=== PATIENT | male | born 1990 | race Caucasian/White ===

== ENCOUNTER 2016-08-07 17:59 | Emergency (ER) | payer SELFPAY ==
[~2016-08-07] VITALS: Ht 172.7 cm; Wt 96.0 kg
[~2016-08-07 17:59] MED LIST: CLEO300C2 PO; SULF-154 PO
[2016-08-07 18:06] VITALS: BP 150/105; TEMP 98.1; O2SAT 99
--- NOTE | 2016-08-07 18:22 | PD ---
HPI Chief Complaint: Anxiety Time Seen by Provider: 18:02 Travel History International Travel<30 days: No Contact w/Intl Traveler<30days: No Traveled to known affect area: No History of Present Illness HPI 26-year-old male complains of feeling shortness of breath and anxiety. Patient states that he lost his job recently. Patient states that he has been anxious and under a lot of stress recently. Patient denies any headache. Patient denies any visual change. Patient denies any chest pain. Patient denies abdominal pain. Patient denies any nausea vomiting diarrhea. Patient denies any history hypertension, diabetes, hyperlipidemia. Patient denies any substance abuse. Patient denies any suicidal ideation. PFSH Past Medical History Asthma: Yes (EXERCISE INDUCED ONLY) Anxiety: Yes Depression: Yes Diminished Hearing: No Immunizations Current: Yes Social History Alcohol Use: Yes (OCCAS. ) Tobacco Use: No (QUIT 1 YR AGO) Substance Use: No Allergies-Medications (Allergen,Severity, Reaction): Coded Allergies: No Known Allergies (Verified , 08/07/16) Reported Meds & Prescriptions Reported Meds & Active Scripts Active Ativan (Lorazepam) 0.5 Mg Tab 0.5 Mg PO Q8H PRN Review of Systems General / Constitutional: No: Fever Eyes: No: Visual changes HENT: No: Headaches Cardiovascular: No: Chest Pain or Discomfort Respiratory: Positive: Shortness of Breath Gastrointestinal: No: Abdominal Pain Genitourinary: No: Dysuria Musculoskeletal: No: Pain Skin: No Rash Neurologic: No: Weakness Psychiatric: Positive: Anxiety, No: Depression Endocrine: No: Polydipsia Hematologic/Lymphatic: No: Easy Bruising Physical Exam Narrative GENERAL: Well-nourished, well-developed patient. SKIN: Focused skin assessment warm/dry. HEAD: Normocephalic. EYES: No scleral icterus. No injection or drainage. NECK: Supple, trachea midline. No JVD or lymphadenopathy. CARDIOVASCULAR: Regular rate and rhythm without murmurs, gallops, or rubs. RESPIRATORY: Breath sounds equal bilaterally. No accessory muscle use. GASTROINTESTINAL: Abdomen soft, non-tender, nondistended. MUSCULOSKELETAL: No cyanosis, or edema. BACK: Nontender without obvious deformity. No CVA tenderness. Neurologic exam normal. Data Data Last Documented VS Vital Signs Date Time Temp Pulse Resp B/P Pulse Ox O2 Delivery O2 Flow Rate FiO2 08/07/16 18:27 96 08/07/16 18:06 98.1 101 16 150/105 Orders Complete Blood Count With Diff (08/07/16 18:19) Comprehensive Metabolic Panel (08/07/16 18:19) Chest, Single Ap (08/07/16 18:19) Iv Access Insert/Monitor (08/07/16 18:19) Ecg Monitoring (08/07/16 18:19) Oximetry (08/07/16 18:19) Potassium Chloride (Kcl) (08/07/16 19:00) Labs Laboratory Tests Test 08/07/16 18:25 White Blood Count 13.6 TH/MM3 Red Blood Count 5.14 MIL/MM3 Hemoglobin 16.2 GM/DL Hematocrit 47.5 % Mean Corpuscular Volume 92.5 FL Mean Corpuscular Hemoglobin 31.5 PG Mean Corpuscular Hemoglobin 34.0 % Concent Red Cell Distribution Width 12.2 % Platelet Count 253 TH/MM3 Mean Platelet Volume 8.0 FL Neutrophils (%) (Auto) 69.2 % Lymphocytes (%) (Auto) 21.0 % Monocytes (%) (Auto) 6.5 % Eosinophils (%) (Auto) 2.8 % Basophils (%) (Auto) 0.5 % Neutrophils # (Auto) 9.3 TH/MM3 Lymphocytes # (Auto) 2.9 TH/MM3 Monocytes # (Auto) 0.9 TH/MM3 Eosinophils # (Auto) 0.4 TH/MM3 Basophils # (Auto) 0.1 TH/MM3 CBC Comment DIFF FINAL Differential Comment Sodium Level 144 MEQ/L Potassium Level 3.2 MEQ/L Chloride Level 107 MEQ/L Carbon Dioxide Level 25.6 MEQ/L Anion Gap 11 MEQ/L Blood Urea Nitrogen 9 MG/DL Creatinine 0.97 MG/DL Estimat Glomerular Filtration 94 ML/MIN Rate Random Glucose 101 MG/DL Calcium Level 9.7 MG/DL Total Bilirubin 0.4 MG/DL Aspartate Amino Transf 100 U/L (AST/SGOT) Alanine Aminotransferase 139 U/L (ALT/SGPT) Alkaline Phosphatase 118 U/L Total Protein 7.8 GM/DL Albumin 3.8 GM/DL MDM Medical Decision Making Medical Screen Exam Complete: Yes Emergency Medical Condition: Yes Interpretation(s) 9 PM. Last Impressions Chest X-Ray 08/07/161818 Signed Impressions: Service Date/Time: July 18:21 - CONCLUSION: No acute cardiopulmonary disease. Miki Shaikh MD CBC with WBC 13.6. Normal differential. Potassium 3.2. AST 100. ALT 139. Alkaline phosphatase 118. Differential Diagnosis Differential diagnosis including anxiety, depression, adjustment disorder. Narrative Course 26-year-old male with mental stress, anxiety and shortness of breath. Patient' s blood pressure is better when he is calm. KCl 40 mEq by mouth given. Diagnosis Primary Impression: Acute anxiety Additional Impressions: Hypokalemia Transaminitis Patient Instructions: General Instructions Additional Instructions: Ativan as needed. Follow-up with local physician. Advised patient to avoid alcohol. Monitor blood pressure at home. Return if persistent elevated blood pressure. Med/Other Pt SpecificInfo: Prescription(s) given Scripts Lorazepam (Ativan)0.5 Mg Tab0.5 Mg PO Q8H PRN (ANXIETY AND/OR AGITATION) #30 TAB Ref 0 Prov:Declan Riley MD 08/07/16 Disposition: 01 DISCHARGE HOME Condition: Stable Declan Riley MD Aug 07, 2016 18:22 Declan Riley MD Aug 07, 2016 18:22
[2016-08-07 18:27] VITALS: O2SAT 96
[2016-08-07 18:34] LABS: AUTOMATED NEUTROPHIL # 9.3 TH/MM3 (1.8-7.7); BASOPHIL # 0.1 TH/MM3 (0-0.2); BASOPHIL % 0.5 % (0.0-2.0); EOSINOPHIL # 0.4 TH/MM3 (0-0.4); EOSINOPHIL % 2.8 % (0.0-4.0); HEMATOCRIT 47.5 % (39.0-51.0); HEMO FLAGS DIFF FINAL; LYMPHOCYTE # 2.9 TH/MM3 (1.0-4.8); MEAN CELL VOLUME 92.5 FL (80.0-100.0); MEAN CORPUSCULAR HEMOGLOBIN 31.5 PG (27.0-34.0); MONO % 6.5 % (0.0-8.0); NEUT % 69.2 % (16.0-70.0); PLATELET COUNT 253 TH/MM3 (150-450); RED BLOOD COUNT 5.14 MIL/MM3 (4.50-5.90); RED CELL DISTRIBUTION WIDTH 12.2 % (11.6-17.2); WHITE BLOOD COUNT 13.6 TH/MM3 (4.0-11.0)
--- NOTE | 2016-08-07 18:42 | RADHPO ---
EXAM DATE/TIME: 08/07/2016 18:21 [facility] COMPARISON: No previous studies available for comparison. INDICATIONS : Dizziness and lightheaded today. MEDICAL HISTORY : Asthma. SURGICAL HISTORY : None. ENCOUNTER: Initial ACUITY: 1 day PAIN SCORE: 0/10 LOCATION: Bilateral chest FINDINGS: The lungs are clear without infiltrate, nodule, or mass. There is no appreciable pleural effusion fo r technique. Heart and mediastinum are unremarkable. CONCLUSION: No acute cardiopulmonary disease. Miki Shaikh MD on August 07, 2016 at 18:40 Board Certified Radiologist. This report was verified electronically.
[2016-08-07 18:44] LABS: CHLORIDE 107 MEQ/L (98-107); POTASSIUM 3.2 MEQ/L (3.5-5.1); SODIUM (NA) 144 MEQ/L (136-145)
[2016-08-07 18:48] LABS: ANION GAP 11 MEQ/L (5-15); BICARBONATE 25.6 MEQ/L (21.0-32.0); BLOOD UREA NITROGEN 9 MG/DL (7-18)
[2016-08-07 18:51] LABS: ALT (GPT) 139 U/L (12-78); AST (GOT) 100 U/L (15-37); GLOMERULAR FILTRATION RATE 94 ML/MIN (>89)
[2016-08-07 18:52] LABS: TOTAL BILIRUBIN ADULT 0.4 MG/DL (0.2-1.0)
[2016-08-07 18:54] LABS: ALKALINE PHOSPHATASE 118 U/L (45-117)
[2016-08-07] MEDS ORDERED: POTASSIUM CHLORIDE 20 MEQ CONTROLLED RELEASE TAB PO ONE (19:00)
[2016-08-07] MEDS ORDERED: LORA-392 PO (19:06)
== END 2016-08-07 19:16 | disposition home or self-care (01) ==
LOC: PHED 17:59
DX: F41.9 Anxiety disorder, unspecified (principal); E87.6 Hypokalemia; R74.0 Nonspecific elevation of levels of transaminase and lactic acid dehydrogenase [LDH]
CPT/HCPCS: 71010; 80053; 85025; 99283